=== PATIENT | female | born 1950 | race Hispanic/Latino ===

== ENCOUNTER 2017-06-14 08:39 | Outpatient (CLI) | payer MEDICARE ==
--- NOTE | 2017-06-14 09:04 | XRay Report ---
RIGHT HIP RADIOGRAPHS INDICATION: Hip pain. COMPARISON: None similar. FINDINGS: An AP pelvic radiograph with standing AP projections of the right hip demonstrate bilateral hip arthroplasties. Bilateral acetabular subchondral cysts noted. Subtle lucency adjacent to the right acetabular cap possible. Mild lower lumbar degenerative changes. Possible osteopenia. Nonobstructive bowel gas pattern. CONCLUSION: 1. Bilateral hip replacements with subtle right acetabular cap loosening not entirely excluded radiographically, as described. Orthopedic correlation as also direct comparison with similar prior imaging, if available, may be further helpful. 2. Few other findings, including bilateral acetabular subchondral cysts, as above. Thank you for the opportunity to participate in this patient's care.
== END 2017-06-14 08:40 | disposition home or self-care (01) ==
LOC: SPVIMAG 08:39
PROVIDERS: ATTEND Orthopaedic Surgery Sports Medicine
DX: M25.861 Other specified joint disorders, right knee (principal); M25.862 Other specified joint disorders, left knee; M47.896 Other spondylosis, lumbar region; Z96.643 Presence of artificial hip joint, bilateral

== ENCOUNTER 2017-09-12 16:12 | Outpatient (CLI) | payer MEDICARE ==
--- NOTE | 2017-09-12 16:32 | XRay Report ---
XRAY RIGHT KNEE 3 THREE VIEWS: 09/12/17 16:12:00 CLINICAL: Right knee pain. FINDINGS: Moderate osteopenia. The medial and lateral joint spaces are normal. Mild patellofemoral joint arthritis. No fracture or dislocation. No joint effusion.Normal soft tissues. IMPRESSION: Mild patellofemoral joint arthritis.
== END 2017-09-12 16:13 | disposition home or self-care (01) ==
LOC: SPVIMAG 16:12
PROVIDERS: ATTEND Orthopaedic Surgery Sports Medicine
DX: M17.11 Unilateral primary osteoarthritis, right knee (principal); M85.861 Other specified disorders of bone density and structure, right lower leg